=== PATIENT | male | born 1985 | race Two or more races ===

== ENCOUNTER 2022-04-24 11:35 | Emergency (ER) | payer OTHER, SELFPAY ==
[2022-04-24 11:44] VITALS: BP 131/69; BP 160/92; PULSE 102; PULSE 88; RESP 14; TEMP 37.1; O2SAT 96; O2SAT 98; BMI 36.9
[2022-04-24 11:56] VITALS: BP 131/69; PULSE 88; RESP 14; TEMP 37.1; O2SAT 98
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
== END 2022-04-24 13:09 | disposition home or self-care (01) ==
PROVIDERS: Emergency Provider Emergency Medicine
DX: F10.929 Alcohol use, unspecified with intoxication, unspecified (principal); Y90.9 Presence of alcohol in blood, level not specified; F17.200 Nicotine dependence, unspecified, uncomplicated
CPT/HCPCS: 99282; 99285